=== PATIENT | male | born 1965 | race Caucasian/White ===

== ENCOUNTER 2017-11-10 13:11 | Emergency (ER) | payer OTHER ==
[2017-11-10 13:24] VITALS: BMI 26.5
[2017-11-10 13:31] LABS: BASO % 0.9 % (0-2.0); EOS % 5.3 % (0-4.5); HEMATOCRIT 43.1 % (35.4-49); HEMOGLOBIN 13.8 GM/dL (11.7-16.9); LYMPH % 33.8 % (8-40); MCH 27.5 pg (25.7-33.7); MCHC 31.9 g/dl (32.0-35.9); MEAN CELL VOLUME 86.1 fl (80-96); MEAN PLT VOLUME 7.9 fl (7.5-11.1); PLATELET COUNT 298 K/MM3 (134-434); RBC 5.01 M/mm3 (4.00-5.60); RDW 14.2 % (11.9-15.9); WHITE BLOOD COUNT 13.2 K/mm3 (4.0-10.0)
[2017-11-10] MEDS ORDERED: ASPIRIN 81 MG CHEWABLE TABLETS PO ONE (13:31)
[2017-11-10] MEDS ORDERED: SODIUM CHLORIDE 1,000 ML IV ONE (13:31)
[2017-11-10] MEDS ORDERED: ASPIRIN 81 MG CHEWABLE TABLETS ONE (13:32)
--- NOTE | 2017-11-10 13:36 | PDOC ---
History of Present Illness - General Chief Complaint: Tachycardia Stated Complaint: CHEST PAIN Time Seen by Provider: 11/10/17 13:34 History Source: Patient, Co-worker - History of Present Illness Initial Comments: 11/10/17 13:35 52 y.o. 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 At presentation patient c/o substernal, non-radiating chest pain with associated nausea, diaphoresis no lightheadedness, no shortness of breath. Patient notes a dissimilar h/o chest pain 5 months previous leading to his A Fib diagnosis. At presentation patient tachycardic (100's) and hypotensive (SPB 90's --> 70's). NKDA Surgical: none Social: denies cigarettes, denies alcohol, denies recreational drugs Past History - Past Medical History Allergies/Adverse Reactions: Allergies Allergy/AdvReac Type Severity Reaction Status Date / Time No Known Allergies Allergy Verified 11/10/17 13:24 Home Medications: Ambulatory Orders Apixaban [Eliquis] 5 mg PO BID 11/10/17 Flecainide Acetate 100 mg PO BID 11/10/17 Cardiac Disorders: Yes (a.fib,mi) COPD: No - Surgical History Abdominal Surgery: Yes (hernia) - Suicide/Smoking/Psychosocial Hx Smoking History: Never smoked Information on smoking cessation initiated: No Substance Use Type: None Review of Systems - Review of Systems Constitutional: No: Chills, Fever HEENTM: No: Blurred Vision, Double Vision, Throat Pain, Difficulty Swallowing Respiratory: Yes: Shortness of Breath. No: Stridor, Wheezing Cardiac (ROS): Yes: Chest Pain, Lightheadedness. No: Palpitations, Syncope ABD/GI: No: Constipated, Diarrhea : No: Burning, Dysuria Integumentary: No: Dryness, Flushing, Lesions Neurological: No: Headache, Numbness, Tingling, Tremors Psychiatric: No: Anxiety, Depression All Other Systems: Reviewed and Negative *Physical Exam - Vital Signs Last Vital Signs Temp Pulse Resp BP Pulse Ox 24 00/00 11/10/17 13:23 11/10/17 13:23 - Physical Exam General Appearance: Yes: Nourished, Appropriately Dressed HEENT: positive: EOMI, CLEMENTINE, Hearing Grossly Normal. negative: Scleral Icterus (R), Scleral Icterus (L), TM Bulging, TM Dull, TM Erythema Neck: positive: Trachea midline, Supple Respiratory/Chest: positive: Lungs Clear Cardiovascular: positive: S1, S2 Gastrointestinal/Abdominal: positive: Normal Bowel Sounds, Soft. negative: Distended, Guarding, Tenderness, Hernia, Mass Extremity: positive: Normal Capillary Refill, Normal Inspection Integumentary: positive: Normal Color, Warm, Diaphoresis. negative: Cold, Clammy Neurologic: positive: medical coding technician II-XII NML intact, Fully Oriented, Alert ED Treatment Course - LABORATORY CBC & Chemistry Diagram: 11/10/17 13:25 11/10/17 13:25 - ADDITIONAL ORDERS Additional order review: 11/10/17 13:25 RBC 5.01 MCV 86.1 MCHC 31.9 L RDW 14.2 MPV 7.9 Neutrophils % 53.0 Lymphocytes % 33.8 Monocytes % 7.0 Eosinophils % 5.3 H Basophils % 0.9 - Medications Given in the ED: ED Medications Discontinued Medications Generic Name Dose Route Start Last Admin Trade Name Freq PRN Reason Stop Dose Admin Aspirin 324 mg 11/10/17 13:31 11/10/17 13:32 Asa - PO 11/10/17 13:32 324 mg NOW ONE Administration Fentanyl 25 mcg 11/10/17 13:29 11/10/17 13:16 Sublimaze Injection - IVPUSH 11/10/17 13:30 25 mcg NOW ONE Administration Medical Decision Making - Medical Decision Making 11/10/17 13:43 Monomorphic VT + Hypotension (initially 90's --> 70's) --> shocked --> sinus tachycardia. Pain control with Fentanyl. Amiodarone drip started, patient remains normotensive (SBP 120's), resting comfortably. 11/10/17 13:47 Case d/w cardiology (Dr. Miller) agrees w/ plan for transfer to [facility] as patient's PCP, Flap Presser @ [facility]. Patient accepted by Dr. Eddy (ED ) @ [facility]. Patient resting comfortably, repeat BP 120's/80's. Patient and patient's son @ bedside counseled on plan, amenable to transfer 11/10/17 16:36 Patient transferred to [facility]. *DC/Admit/Observation/Transfer Diagnosis at time of Disposition: Chest pain - Discharge Dispostion Disposition: TRANSFER ACUTE CARE/OTHER HOSP - Referrals - Patient Instructions - Post Discharge Activity
--- NOTE | 2017-11-10 13:42 | PDOC ---
Attending Attestation - Resident Resident Name: Sophy Mensah - HPI HPI: 11/10/17 16:17 Pt presents to the ED complaining of the acute onset of chest pain 15 minutes prior to arrival. On arrival in the ED, patient found to be tachycardic, diaphoretic, dyspneic and in v tach. Given that he had hypotension into the 70s and chest pain, patient was cardioverted with return to normal sinus and resolution of his symptoms. - Physicial Exam PE: 11/10/17 16:18 Agree with resident exam. Patient diaphoretic, tachypneic, speaking in 1-2 word sentences and clutching his chest on ED arrival. Post cardioversion, patient is speaking in complete sentences with no complaints. - Critical Care Time Total Critical Care Time: 30 Critical Care Statement: The care of this patient involved high complexity decision making to prevent further life threatening deterioration of the patient 's condition and/or to evaluate & treat vital organ system(s) failure or risk of failure. - Medical Decision Making 11/10/17 16:19 Pt presents to the ED in unstable V tach. Cardioverted shortly after arrival, with improvement in his BP and resolution of his symptoms. Given amio for prevention of further arrhythmia and IV hydration. 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 Report given to Dr. Eddy in the [facility] ED who has accepted the patient. Will transfer to [facility].
[2017-11-10 13:46] LABS: INR 1.36 (0.82-1.09); PROTHROMBIN TIME (PATIENT) 15.4 SEC (9.98-11.88)
[2017-11-10 13:52] LABS: ALBUMIN 3.9 g/dl (3.4-5.0); ANION GAP 12 (8-16); BILIRUBIN,TOTAL 0.7 mg/dL (0.2-1.0); BLOOD UREA NITROGEN 17 mg/dL (7-18); CALCIUM 8.7 mg/dL (8.5-10.1); CHLORIDE 105 mmol/L (98-107); CO2 26 mmol/L (21-32); CREATININE 1.4 mg/dL (0.7-1.3); GLUCOSE,RANDOM 110 mg/dL (74-106); MAGNESIUM 2.5 mg/dL (1.8-2.4); POTASSIUM 3.4 mmol/L (3.5-5.1); SGOT/AST 44 U/L (15-37); SGPT/ALT 73 U/L (12-78); SODIUM 143 mmol/L (136-145); TOT PROT 7.1 g/dl (6.4-8.2)
[2017-11-10] MEDS ORDERED: AMIODARONE HCL 150 MG/3 ML VIAL IVPUSH ONE (13:52)
[2017-11-10] MEDS ORDERED: AMIODARONE HCL INJECTION 150 MG in DEXTROSE 5%-WATER - 97 ML IVPB ONE (13:58)
[2017-11-10] MEDS ORDERED: AMIODARONE IN DEXTROSE,ISO-OSM 360 MG/200 ML BAG IVPB SCH ×2 (14:00→14:04)
[2017-11-10] MEDS ORDERED: AMIODARONE IN DEXTROSE,ISO-OSM 360 MG/200 ML BAG ONE (14:03)
[2017-11-10] MEDS ORDERED: AMIODARONE HCL 150 MG/3 ML VIAL ONE (14:03)
[2017-11-10 14:04] VITALS: TEMP 98
[2017-11-10 14:06] LABS: ALK PHOS 94 U/L (45-117)
[2017-11-10 16:25] VITALS: BP 125/80; PULSE 88
--- NOTE | 2017-11-11 11:32 | EKG ---
Test Reason : Blood Pressure : / mmHG Vent. Rate : 102 BPM Atrial Rate : 102 BPM P-R Int : 130 ms QRS Dur : 092 ms QT Int : 380 ms P-R-T Axes : 065 -29 042 degrees QTc Int : 495 ms POOR DATA QUALITY, INTERPRETATION MAY BE ADVERSELY AFFECTED SINUS TACHYCARDIA LOW VOLTAGE QRS CANNOT RULE OUT ANTEROSEPTAL INFARCT (CITED ON OR BEFORE 10-NOV-2017) ABNORMAL ECG WHEN COMPARED WITH ECG OF 10-NOV-2017 13:24, PREMATURE ATRIAL COMPLEXES ARE NO LONGER PRESENT QUESTIONABLE CHANGE IN INITIAL FORCES OF ANTEROSEPTAL LEADS NONSPECIFIC T WAVE ABNORMALITY HAS REPLACED INVERTED T WAVES IN ANTERIOR LEADS Confirmed by MD Bennie, Toni ([id number]) on 11/11/2017 11:31:41 AM Referred By: Confirmed By:Toni Avery MD
--- NOTE | 2017-11-11 11:33 | EKG ---
Test Reason : Blood Pressure : / mmHG Vent. Rate : 120 BPM Atrial Rate : 122 BPM P-R Int : 150 ms QRS Dur : 096 ms QT Int : 356 ms P-R-T Axes : 057 -49 054 degrees QTc Int : 503 ms POOR DATA QUALITY, INTERPRETATION MAY BE ADVERSELY AFFECTED SINUS TACHYCARDIA WITH PREMATURE ATRIAL COMPLEXES WITH ABERRANT CONDUCTION LEFT ANTERIOR FASCICULAR BLOCK NONSPECIFIC ST ABNORMALITY ABNORMAL ECG WHEN COMPARED WITH ECG OF 10-NOV-2017 13:14, SINUS RHYTHM HAS REPLACED WIDE QRS TACHYCARDIA VENT. RATE HAS DECREASED BY 95 BPM Confirmed by MD Bennie, Toni ([id number]) on 11/11/2017 11:32:50 AM Referred By: Confirmed By:Toni Avery MD
--- NOTE | 2017-11-11 11:37 | EKG ---
Test Reason : Blood Pressure : / mmHG Vent. Rate : 215 BPM Atrial Rate : 214 BPM P-R Int : 000 ms QRS Dur : 154 ms QT Int : 264 ms P-R-T Axes : 000 031 -86 degrees QTc Int : 499 ms POOR DATA QUALITY, INTERPRETATION MAY BE ADVERSELY AFFECTED WIDE COMPLEX TACHYCARDIA LEFT BUNDLE BRANCH BLOCK Pattern ABNORMAL ECG NO PREVIOUS ECGS AVAILABLE Confirmed by MD Bennie, Toni ([id number]) on 11/11/2017 11:37:04 AM Referred By: Confirmed By:Toni Avery MD
== END 2017-11-10 16:45 | disposition short-term general hospital (02) ==
LOC: JER 13:11
PROC: 3E0337Z Introduction of Electrolytic and Water Balance Substance into Peripheral Vein, Percutaneous Approach (ICD-10-PCS; principal; 2017-11-10)
PROC: 3E033RZ Introduction of Antiarrhythmic into Peripheral Vein, Percutaneous Approach (ICD-10-PCS; 2017-11-10)
PROC: 5A2204Z Restoration of Cardiac Rhythm, Single (ICD-10-PCS; 2017-11-10)
DX: R61 Generalized hyperhidrosis (principal); R07.89 Other chest pain; I47.2 Ventricular tachycardia
CPT/HCPCS: 36415; 71045-TC-FY; 80053; 82550; 83735; 84484; 85025; 85610; 85730; 92960; 93005; 93010; 96361; 96374; 96375; 99285-25; J7030